=== PATIENT | male | born 1985 | race Caucasian/White ===

== ENCOUNTER 2025-04-26 01:00 | Emergency (ER) | payer MEDICARE ==
[2025-04-26 01:45] LABS: #Basophils 0.09 10x3/uL (0.0-0.2); #Eosinophils 0.43 10x3/uL (0.0-0.5); #Monocytes 0.81 10x3/uL (0.0-1.1); #Neutrophils 9.95 10x3/uL (1.5-8.4); %Basophils 0.6 % (0.0-2.0); %Eosinophils 3.1 % (0.0-6.0); %Lymphocytes 19.3 % (18.0-47.0); %Monocytes 5.8 % (0.0-10.0); %Neutrophils 70.7 % (40.0-75.0); Hematocrit 39.5 % (38.8-50.0); Hemoglobin 13.4 g/dL (13.5-17.5); Mean Corpuscular Hemoglobin 32.4 pg (27.0-33.0); Mean Corpuscular Volume 95.4 fL (81.2-95.1); Platelet Count 243 10x3/uL (150-450); Red Blood Cell (RBC) Count 4.14 10x6/uL (4.32-5.72); White Blood Cell (WBC) Count 14.06 10x3/uL (3.5-10.5)
[2025-04-26 02:00] LABS: ALT (SGPT) 16 U/L (Less than 45); AST (SGOT) 23 U/L (11-34); Albumin 3.3 g/dL (3.1-4.5); Alkaline Phosphatase 109 U/L (40-110); Anion Gap 20 mmol/L (10-20); BUN (Urea Nitrogen) 21 mg/dL (8.9-20.6); Bilirubin, Total 0.2 mg/dL (0.3-1.2); Calc. Creatinine Clearance 0 mL/min (70-130); Calcium 8.7 mg/dL (7.8-10.44); Carbon Dioxide 19 mmol/L (22-29); Chloride 100 mmol/L (98-107); Globulin 3.1 g/dL (2.4-3.5); Glucose 317 mg/dL (70-105); Magnesium 2.1 mg/dL (1.6-2.6); Potassium 3.8 mmol/L (3.5-5.1); Sodium 135 mmol/L (136-145)
== END 2025-04-26 08:39 | disposition home or self-care (01) ==
LOC: CSHERS 01:00
DX: F10.129 Alcohol abuse with intoxication, unspecified (principal); R11.2 Nausea with vomiting, unspecified; E10.9 Type 1 diabetes mellitus without complications; F17.210 Nicotine dependence, cigarettes, uncomplicated; Z79.4 Long term (current) use of insulin; Z86.73 Personal history of transient ischemic attack (TIA), and cerebral infarction without residual deficits
CPT/HCPCS: 36415; 80053; 83735; 85025; 99284